=== PATIENT | male | born 2000 | race Caucasian/White ===

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

== ENCOUNTER 2019-09-12 10:51 | Emergency (ER) | payer SELFPAY ==
[~2019-09-12] VITALS: Ht 180.3 cm; Wt 60.3 kg
[2019-09-12 10:56] VITALS: BP 124/73
[2019-09-12] MEDS ORDERED: NS IV 1000 ML 1,000 ML IV SCH (11:19)
[2019-09-12] MEDS ORDERED: PROCHLORPERAZINE 10 MG/2ML INJ (COMPAZINE) IV ONE (11:30)
[2019-09-12 11:31] LABS: BASOPHILS % (AUTO) 0 % (0-10); EOSINOPHILS # (AUTO) 0.1 10^3/uL (0.0-0.3); EOSINOPHILS % (AUTO) 2 % (0-10); HEMATOCRIT 43 % (40-54); HEMOGLOBIN 14.9 G/DL (13.3-17.7); LYMPHOCYTES # (AUTO) 1.5 X 10^3 (1.0-4.0); LYMPHOCYTES % (AUTO) 23 % (12-44); MEAN CORPUSCULAR HEMOGLOBIN 30 PG (25-34); MEAN CORPUSCULAR HGB CONC 35 G/DL (32-36); MEAN CORPUSCULAR VOLUME 87 FL (80-99); MEAN PLATELET VOLUME 11.6 FL (7.4-10.4); MONOCYTES # (AUTO) 0.5 X 10^3 (0.0-1.0); MONOCYTES % (AUTO) 8 % (0-12); NEUTROPHILS # (AUTO) 4.3 X 10^3 (1.8-7.8); NEUTROPHILS % (AUTO) 67 % (42-75); PLATELET COUNT 213 10^3/uL (130-400); RED CELL DISTRIBUTION WIDTH 12.6 % (10.0-14.5); WHITE BLOOD COUNT 6.4 10^3/uL (4.3-11.0)
[2019-09-12 11:32] LABS: BILIRUBIN,URINE NEGATIVE (NEGATIVE); CLARITY,URINE CLEAR; COLOR,URINE YELLOW; GLUCOSE, URINE (UA) NEGATIVE (NEGATIVE); KETONES,URINE NEGATIVE (NEGATIVE); LEUKOCYTE ESTERASE ,URINE NEGATIVE (NEGATIVE); NITRITE,URINE NEGATIVE (NEGATIVE); PROTEIN,URINE NEGATIVE (NEGATIVE)
--- NOTE | 2019-09-12 11:34 | ED Abdominal Pain ---
General Chief Complaint: Abdominal/GI Problems Stated Complaint: ABD PAIN Nursing Triage Note: Pt c/o N/V/D for one month. Pt reports abdominal pain began as epigastric and now radiates to the RLQ. Pt reports being seen at [facility] last week for the same issue. Pt reports taking zofran at this time. Pt reports liver enzymes are "messed up." Pt reports substantial weight loss. Sepsis Screen: No Definite Risk History of Present Illness Date Seen by Provider: Sep 12, 2019 Time Seen by Provider: 11:15 Initial Comments 19-year-old male presents with approximately 1 month history of lower abdominal pain, intermittent vomiting and diarrhea. He's had no previous history of surgeries to his abdomen. He has been seen at [facility] and tried on several different medications that have not seemed to resolve his symptoms. He was most recently started on Zofran but does not feel it is helping with the nausea. No history of chronic abdominal problems. He was tested for COVID last week and found to be negative. He has been eating a regular diet and last vomited approximately 15 minutes prior to arrival here. He reports a 15-20 pound weight loss. Timing/Duration: 6-7 Days, Getting Worse, Intermittent Severity/Quality: Moderate Location: RLQ, Generalized Abdomen Radiation: No Radiation Associated Symptoms: No Back Pain, No Chest Pain, No Diaphoresis, No Fever/Chills; Fatigue; No Heartburn; Nausea/Vomiting, Other (diarrhea and weigh loss) Allergies and Home Medications Allergies Coded Allergies: Penicillins (Verified Adverse Reaction, Mild, 06/10/11) Home Medications No Active Prescriptions or Reported Meds Patient Home Medication List Home Medication List Reviewed: Yes Review of Systems Review of Systems Constitutional: see HPI, weight loss Gastrointestinal: See HPI, Abdominal Pain; Denies Blood Streaked Stools, Denies Constipated; Diarrhea, Nausea, Poor Appetite; Denies Rectal Bleeding; Vomiting All Other Systems Reviewed Negative Unless Noted: Yes Past Eaandee-Kjuvov-Rekrzn Hx Patient Social History Recreational Drug Use: Yes (weekly) Drug of Choice: marijuana Type Used: Cigarettes 2nd Hand Smoke Exposure: No Recent Foreign Travel: No Contact w/Someone Who Travel: No Recent Infectious Disease Expo: No Recent Hopitalizations: No Immunizations Up To Date Tetanus Booster (TDap): Less than 5yrs PED Vaccines UTD: Yes Seasonal Allergies Seasonal Allergies: No Past Medical History Surgeries: Yes (EAR TUBES) Ear Surgery, Orthopedic, Tonsillectomy Respiratory: Yes Asthma Cardiac: No Neurological: No Reproductive Disorders: No Genitourinary: No Gastrointestinal: No Musculoskeletal: No Endocrine: Yes (DIET CONTROLLED-NO MEDS FOR DM) Diabetes, Non-Insulin dep HEENT: No Cancer: No Psychosocial: No Anxiety, Depression Integumentary: No Blood Disorders: No Physical Exam Vital Signs Vital Signs - First Documented 09/12/19 10:56 Temp 36.7 Pulse 83 Resp 20 B/P (MAP) 124/73 (90) Pulse Ox 100 O2 Delivery Room Air Capillary Refill : Less Than 3 Seconds Height/Weight/BMI Height: 5'11.00" Weight: 163lbs. oz. 73.546600fb; 18.00 BMI Method:Actual General Appearance: WD/WN, no apparent distress HEENT: PERRL/EOMI, normal ENT inspection, TMs normal, pharynx normal Neck: non-tender, full range of motion, supple, normal inspection Respiratory: chest non-tender, lungs clear, normal breath sounds Cardiovascular: normal peripheral pulses, regular rate, rhythm Gastrointestinal: normal bowel sounds, soft; No distended, No guarding, No rebound; tenderness (RLQ with palpation, Neg Rebound, Heel tap, Obturator and Carr Sign); No hernia, No mass Extremities: normal range of motion, non-tender, normal inspection, no pedal edema Back: normal inspection, no CVA tenderness, no vertebral tenderness Neurologic/Psychiatric: no motor/sensory deficits, alert, normal mood/affect, oriented x 3 Skin: normal color, warm/dry; No pallor, No rash Progress/Results/Core Measures Results/Orders Lab Results Laboratory Tests Test 09/12/19 11:05 09/12/19 11:20 Range/Units White Blood Count 6.4 4.3-11.0 10^3/uL Red Blood Count 4.93 4.35-5.85 10^6/uL Hemoglobin 14.9 13.3-17.7 G/DL Hematocrit 43 40-54 % Mean Corpuscular Volume 87 80-99 FL Mean Corpuscular Hemoglobin 30 25-34 PG Mean Corpuscular Hemoglobin Concent 35 32-36 G/DL Red Cell Distribution Width 12.6 10.0-14.5 % Platelet Count 213 130-400 10^3/uL Mean Platelet Volume 11.6 H 7.4-10.4 FL Neutrophils (%) (Auto) 67 42-75 % Lymphocytes (%) (Auto) 23 12-44 % Monocytes (%) (Auto) 8 0-12 % Eosinophils (%) (Auto) 2 0-10 % Basophils (%) (Auto) 0 0-10 % Neutrophils # (Auto) 4.3 1.8-7.8 X 10^3 Lymphocytes # (Auto) 1.5 1.0-4.0 X 10^3 Monocytes # (Auto) 0.5 0.0-1.0 X 10^3 Eosinophils # (Auto) 0.1 0.0-0.3 10^3/uL Basophils # (Auto) 0.0 0.0-0.1 10^3/uL Sodium Level 141 135-145 MMOL/L Potassium Level 3.7 3.6-5.0 MMOL/L Chloride Level 107 98-107 MMOL/L Carbon Dioxide Level 21 21-32 MMOL/L Anion Gap 13 5-14 MMOL/L Blood Urea Nitrogen 9 7-18 MG/DL Creatinine 1.06 0.60-1.30 MG/DL Estimat Glomerular Filtration Rate > 60 BUN/Creatinine Ratio 8 Glucose Level 101 70-105 MG/DL Calcium Level 9.6 8.5-10.1 MG/DL Corrected Calcium 8.5-10.1 MG/DL Total Bilirubin 2.0 H 0.1-1.0 MG/DL Aspartate Amino Transf (AST/SGOT) 14 5-34 U/L Alanine Aminotransferase (ALT/SGPT) 7 0-55 U/L Alkaline Phosphatase 71 40-136 U/L Total Protein 7.5 6.4-8.2 GM/DL Albumin 5.0 H 3.2-4.5 GM/DL Amylase Level 33 25-125 U/L Lipase 15 8-78 U/L Urine Color YELLOW Urine Clarity CLEAR Urine pH 7.0 5-9 Urine Specific [place] 1.010 L 1.016-1.022 Urine Protein NEGATIVE NEGATIVE Urine Glucose (UA) NEGATIVE NEGATIVE Urine Ketones NEGATIVE NEGATIVE Urine Nitrite NEGATIVE NEGATIVE Urine Bilirubin NEGATIVE NEGATIVE Urine Urobilinogen 0.2 < = 1.0 MG/DL Urine Leukocyte Esterase NEGATIVE NEGATIVE Urine RBC (Auto) 1+ H NEGATIVE Urine RBC 2-5 H /HPF Urine WBC RARE /HPF Urine Squamous Epithelial Cells RARE /HPF Urine Crystals PRESENT H /LPF Urine Amorphous Sediment RARE COSMO PHOSPHATE H /LPF Urine Bacteria NEGATIVE /HPF Urine Casts NONE /LPF Urine Mucus NEGATIVE /LPF Urine Culture Indicated NO Urine Opiates Screen NEGATIVE NEGATIVE Urine Oxycodone Screen NEGATIVE NEGATIVE Urine Methadone Screen NEGATIVE NEGATIVE Urine Propoxyphene Screen NEGATIVE NEGATIVE Urine Barbiturates Screen NEGATIVE NEGATIVE Ur Tricyclic Antidepressants Screen NEGATIVE NEGATIVE Urine Phencyclidine Screen NEGATIVE NEGATIVE Urine Amphetamines Screen NEGATIVE NEGATIVE Urine Methamphetamines Screen NEGATIVE NEGATIVE Urine Benzodiazepines Screen NEGATIVE NEGATIVE Urine Cocaine Screen NEGATIVE NEGATIVE Urine Cannabinoids Screen POSITIVE H NEGATIVE My Orders Orders - COREY,CARMELITA DIRECTOR ORGANIZATIONAL Ua Culture If Indicated (09/12/19 11:13) Comprehensive Metabolic Panel (09/12/19 11:19) Lipase (09/12/19 11:19) Amylase (09/12/19 11:19) Cbc With Automated Diff (09/12/19 11:19) Ct Abdomen/Pelvis Wo (09/12/19 11:19) Prochlorperazine Injection (Compazine In (09/12/19 11:30) Ed Iv/Invasive Line Start (09/12/19 11:19) Ns Iv 1000 Ml (Sodium Chloride 0.9%) (09/12/19 11:19) Drug Screen Stat (Urine) (09/12/19 11:52) Medications Given in ED Current Medications Medications Dose Ordered Sig/Christ Route Start Time Stop Time Status Last Admin Dose Admin Prochlorperazine Edisylate 10 mg ONCE ONCE IV 09/12/19 11:30 09/12/19 11:31 DC 09/12/19 11:38 10 MG Vital Signs/I&O 09/12/19 10:56 Temp 36.7 Pulse 83 Resp 20 B/P (MAP) 124/73 (90) Pulse Ox 100 O2 Delivery Room Air Blood Pressure Mean: 90 Progress Progress Note : Time: 11:15 Progress Note Patient seen and evaluated, will obtain labs, IV normal saline 1 L, Compazine 10 mg IV, and CT abdomen. 1145 patient reports improvement with the nausea after receiving the Compazine. Reviewed CT no acute findings by my interpretation, awaiting radiology report. 1215 patient became agitated and demanded to be discharged from the hospital. He states that he does not like being alone in her room and he is cold, provided warm blanket.Continues to request discharge. CT results reviewed with him. Discharge instructions and return precautions reviewed. Departure Impression Primary Impression: Abdominal pain Qualified Codes: R10.84 - Generalized abdominal pain Additional Impression: Nausea vomiting and diarrhea Disposition: HOME, SELF-CARE Condition: Improved Departure-Patient Inst. Decision time for Depature: 12:15 Referrals: [facility]/HELENA HALL MD (PCP/Family) Primary Care Physician Patient Instructions: Severe Abdominal Pain, Adult (DC) Add. Discharge Instructions: Clear liquid diet. Imodium for diarrhea. Continue to use the medicines that have been prescribed for nausea and vomiting. Follow-up with [facility] if symptoms are not improving. Return to the emergency department for new acute health problems. All discharge instructions reviewed with patient and/or family. Voiced understanding. Scripts No Active Prescriptions or Reported Meds CARMELITA NICOLE Sep 12, 2019 11:34
[2019-09-12 11:36] LABS: CHLORIDE 107 MMOL/L (98-107); POTASSIUM 3.7 MMOL/L (3.6-5.0); SODIUM 141 MMOL/L (135-145)
[2019-09-12 11:37] LABS: AMYLASE 33 U/L (25-125); CALCIUM 9.6 MG/DL (8.5-10.1)
[2019-09-12 11:38] LABS: GLUCOSE 101 MG/DL (70-105)
[2019-09-12 11:39] LABS: TOTAL PROTEIN 7.5 GM/DL (6.4-8.2)
[2019-09-12 11:40] LABS: CARBON DIOXIDE 21 MMOL/L (21-32)
[2019-09-12 11:41] LABS: AMORPHOUS SEDIMENT,UR RARE AMOR PHOSPHATE /LPF; BACTERIA,URINE NEGATIVE /HPF; SQUAMOUS EPITHELIAL CELL,UR RARE /HPF; WBC,URINE RARE /HPF
[2019-09-12 11:42] LABS: ALKALINE PHOSPHATASE 71 U/L (40-136); CREATININE SERUM 1.06 MG/DL (0.60-1.30); GFR ESTIMATED > 60
[2019-09-12 11:43] LABS: BUN/CREATININE RATIO 8
[2019-09-12 11:45] LABS: ALANINE AMINOTRANSFERASE 7 U/L (0-55)
[2019-09-12 11:46] LABS: LIPASE 15 U/L (8-78)
[2019-09-12 12:09] LABS: AMPHETAMINE SCREEN, URINE NEGATIVE (NEGATIVE); BARBITURATE SCREEN URINE NEGATIVE (NEGATIVE); BENZODIAZEPINES SCREEN URINE NEGATIVE (NEGATIVE); CANNABINOID SCREEN, URINE POSITIVE (NEGATIVE); COCAINE SCREEN URINE NEGATIVE (NEGATIVE); METHADONE STAT NEGATIVE (NEGATIVE); METHAMPHETAMINE SCREEN URINE S NEGATIVE (NEGATIVE); OPIATE SCREEN URINE NEGATIVE (NEGATIVE); OXYCODONE STAT NEGATIVE (NEGATIVE); PROPOXYPHENE STAT NEGATIVE (NEGATIVE); TRICYCLIC ANTIDEPRESSANTS SCRE NEGATIVE (NEGATIVE)
--- NOTE | 2019-09-12 12:22 | Diagnostic Imaging Report ---
PROCEDURE: CT abdomen and pelvis without contrast. TECHNIQUE: Multiple contiguous axial images were obtained through the abdomen and pelvis without the use of intravenous contrast. Auto Exposure Controls were utilized during the CT exam to meet ALARA standards for radiation dose reduction. INDICATION: Chills and right lower quadrant pain. No prior studies are available for comparison. The lung bases are clear. Liver and gallbladder appear unremarkable. No biliary duct dilatation is identified. Pancreas and spleen are unremarkable. No adrenal mass is detected. No definite renal calculi or hydronephrosis is detected. The aorta is non-aneurysmal. The bowel loops appear to be normal caliber. The appendix is visualized in the right lower quadrant. No definite CT evidence of acute appendicitis is identified. Bladder and prostate are unremarkable. There is no free fluid or fluid collection identified. No inflammatory changes are seen. The bony structures are unremarkable. IMPRESSION: Unremarkable noncontrast CT of the abdomen and pelvis. There are no findings to suggest acute appendicitis. Dictated by: Dictated on workstation # [id number]
== END 2019-09-12 12:23 | disposition home or self-care (01) ==
LOC: EDUNIT# 10:51 → ER 10:52
DX: R10.84 Generalized abdominal pain (principal); R19.7 Diarrhea, unspecified; R11.2 Nausea with vomiting, unspecified; Z88.0 Allergy status to penicillin
CPT/HCPCS: 36415; 74176; 80053; 80306; 81000; 82150; 83690; 85025